=== PATIENT | male | born 1985 | race Caucasian/White ===

== ENCOUNTER 2023-06-28 10:45 | Emergency (ER) | payer MEDICAID ==
[~2023-06-28] VITALS: Ht 175.3 cm; Wt 95.3 kg
[2023-06-28 20:11] VITALS: BP 113/80; TEMP 98.4; O2SAT 96
== END 2023-06-28 20:11 | disposition home or self-care (01) ==
LOC: EDBD 11:10 → ER 11:10
DX: F10.129 Alcohol abuse with intoxication, unspecified (principal); Y90.9 Presence of alcohol in blood, level not specified

== ENCOUNTER 2023-12-09 14:37 | Inpatient (IN) | payer MEDICAID, OTHER ==
[~2023-12-09] VITALS: Ht 165.1 cm; Wt 95.3 kg
[2023-12-09] MEDS ORDERED: LORAZEPAM INJ 2 MG/ML VIAL ONE (14:50)
[2023-12-09] MEDS: LORAZEPAM INJ 2 MG/ML VIAL IVP ONE (14:54)
[2023-12-09 15:01] LABS: BASOPHILS # (AUTO) 0.1 K/uL (0.0-0.2); BASOPHILS % (AUTO) 1.1 % (0.0-2.0); EOSINOPHILS # (AUTO) 0.1 K/uL (0.0-0.7); HEMATOCRIT 37 % (39-51); HEMOGLOBIN 12.5 g/dL (13.5-17.5); LYMPHOCYTES # (AUTO) 1.4 K/uL (0.8-4.8); LYMPHOCYTES % (AUTO) 25.2 % (20.0-44.0); MEAN CORPUSCULAR HEMOGLOBIN 31 PG (26.0-33.0); MEAN CORPUSCULAR HGB CONC 34 g/dl (31.0-36.0); MEAN CORPUSCULAR VOLUME 91 fL (80-96); MONOCYTES # (AUTO) 0.2 K/uL (0.1-1.30); MONOCYTES % (AUTO) 3.3 % (2.0-12.0); NEUTROPHILS # (AUTO) 3.9 K/uL (1.8-8.9); NEUTROPHILS % (AUTO) 69.4 % (43.0-81.0); PLATELET COUNT (AUTO) 326 K/uL (150-450); RED BLOOD CELL COUNT(AUTO) 4.09 MIL/uL (4.5-6.0); RED CELL DISTRIBUTION WIDTH 14.5 % (11.5-15.0); WHITE BLOOD COUNT (AUTO) 5.6 K/uL (4.3-11.0)
[2023-12-09 15:13] LABS: CALCIUM, SERUM 8.3 mg/dL (8.5-10.1); CARBON DIOXIDE 22 mmol/L (21-32); CHLORIDE 104 mmol/L (98-107); CREATININE 1.3 mg/dL (0.6-1.3); GLUCOSE 158 mg/dL (74-106); SODIUM SERUM 137 mmol/L (136-145); UREA NITROGEN, BLOOD 12 mg/dL (7-18)
[2023-12-09 15:16] LABS: ALCOHOL, BLOOD < 3 mg/dL (0-10)
[2023-12-09 21:50] VITALS: BP 117/88; TEMP 98.6; O2SAT 100
[2023-12-10] VITALS: BP 99/64; TEMP 98.7; O2SAT 100
[2023-12-10] MEDS ORDERED: ACETAMINOPHEN 325 MG TABLET PO PRN
[2023-12-10] MEDS ORDERED: MAG HYDROX/AL HYDROX/SIMETH 30 ML UDC PO PRN
[2023-12-10] MEDS ORDERED: ONDANSETRON HCL/PF 4 MG/2 ML VIAL IVP PRN
[2023-12-10] MEDS ORDERED: LORAZEPAM INJ 2 MG/ML VIAL IV PRN
[2023-12-10] MEDS: CHLORDIAZEPOXIDE HCL 25 MG CAPSULE PO SCH (00:30)
[2023-12-10] MEDS: IV NS 0.9% 1,000 ML IV PRN (00:31)
[2023-12-10 06:39] LABS: BASOPHILS # (AUTO) 0.1 K/uL (0.0-0.2); BASOPHILS % (AUTO) 1.1 % (0.0-2.0); EOSINOPHILS # (AUTO) 0.1 K/uL (0.0-0.7); EOSINOPHILS % (AUTO) 2.6 % (0.0-6.0); HEMATOCRIT 36 % (39-51); HEMOGLOBIN 12.1 g/dL (13.5-17.5); LYMPHOCYTES # (AUTO) 1.9 K/uL (0.8-4.8); LYMPHOCYTES % (AUTO) 37.6 % (20.0-44.0); MEAN CORPUSCULAR HEMOGLOBIN 31 PG (26.0-33.0); MEAN CORPUSCULAR HGB CONC 34 g/dl (31.0-36.0); MEAN CORPUSCULAR VOLUME 91 fL (80-96); MONOCYTES # (AUTO) 0.3 K/uL (0.1-1.30); MONOCYTES % (AUTO) 6.1 % (2.0-12.0); NEUTROPHILS # (AUTO) 2.7 K/uL (1.8-8.9); NEUTROPHILS % (AUTO) 52.6 % (43.0-81.0); PLATELET COUNT (AUTO) 298 K/uL (150-450); RED BLOOD CELL COUNT(AUTO) 3.91 MIL/uL (4.5-6.0); RED CELL DISTRIBUTION WIDTH 14.9 % (11.5-15.0); WHITE BLOOD COUNT (AUTO) 5.2 K/uL (4.3-11.0)
[2023-12-10 06:46] LABS: CREATININE 1.2 mg/dL (0.6-1.3); MAGNESIUM 2.2 mg/dL (1.8-2.4); PHOSPHORUS 3.4 mg/dL (2.5-4.9); POTASSIUM 3.3 mmol/L (3.5-5.1)
[2023-12-10 08:00] VITALS: BP 112/86; TEMP 97.6; O2SAT 100
[2023-12-10 08:20] VITALS: O2SAT 100
[2023-12-10] MEDS: THIAMINE HCL 100 MG TABLET PO SCH (08:33)
[2023-12-10] MEDS: ENOXAPARIN SODIUM 40 MG/0.4 ML DISP.SYRIN SQ SCH (08:34)
[2023-12-10] MEDS: FOLIC ACID 1 MG TABLET PO SCH (08:34)
[2023-12-10] MEDS ORDERED: LEVO100T PO (09:37)
[2023-12-10] MEDS ORDERED: LEVE1000 PO (09:37)
[2023-12-10] MEDS: POTASSIUM CHLORIDE 20 MEQ TAB.PRT.SR PO ONE (10:55)
[2023-12-10] MEDS: LEVETIRACETAM (250 MG) 250 MG TABLET PO SCH ×2 (10:55→21:13)
[2023-12-10] MEDS: LEVOTHYROXINE SODIUM 100 MCG TABLET PO SCH (10:55)
[2023-12-10] MEDS ORDERED: LACOSAMIDE 50 MG TABLET PO SCH (12:00)
[2023-12-10 16:00] VITALS: BP 92/61; TEMP 97.5; O2SAT 100
[2023-12-10 20:00] VITALS: BP 98/67; TEMP 97.9; O2SAT 100
[2023-12-11 04:00] VITALS: BP 97/64; TEMP 97.8; O2SAT 100
[2023-12-11 06:30] LABS: CALCIUM, SERUM 8.4 mg/dL (8.5-10.1); POTASSIUM 3.5 mmol/L (3.5-5.1)
[2023-12-11 06:53] LABS: BASOPHILS % (AUTO) 0.8 % (0.0-2.0); EOSINOPHILS # (AUTO) 0.1 K/uL (0.0-0.7); EOSINOPHILS % (AUTO) 2.9 % (0.0-6.0); HEMATOCRIT 35 % (39-51); HEMOGLOBIN 11.6 g/dL (13.5-17.5); LYMPHOCYTES # (AUTO) 1.9 K/uL (0.8-4.8); LYMPHOCYTES % (AUTO) 43.2 % (20.0-44.0); MEAN CORPUSCULAR HEMOGLOBIN 31 PG (26.0-33.0); MEAN CORPUSCULAR HGB CONC 34 g/dl (31.0-36.0); MEAN CORPUSCULAR VOLUME 92 fL (80-96); MONOCYTES # (AUTO) 0.2 K/uL (0.1-1.30); MONOCYTES % (AUTO) 5.3 % (2.0-12.0); NEUTROPHILS # (AUTO) 2.1 K/uL (1.8-8.9); NEUTROPHILS % (AUTO) 47.8 % (43.0-81.0); PLATELET COUNT (AUTO) 259 K/uL (150-450); RED BLOOD CELL COUNT(AUTO) 3.77 MIL/uL (4.5-6.0); WHITE BLOOD COUNT (AUTO) 4.4 K/uL (4.3-11.0)
[2023-12-11] MEDS ORDERED: LEVE250T2 PO (08:45)
== END 2023-12-11 11:15 | disposition home or self-care (01) | DRG 53 ==
LOC: ER 14:56 → MEDSG1 20:59
PROVIDERS: ADMIT Internal Medicine; ATTEND Internal Medicine
DX: G40.909 Epilepsy, unspecified, not intractable, without status epilepticus (principal); D64.9 Anemia, unspecified; F10.10 Alcohol abuse, uncomplicated; Y90.0 Blood alcohol level of less than 20 mg/100 ml; Z79.899 Other long term (current) drug therapy; E87.6 Hypokalemia; Z87.820 Personal history of traumatic brain injury; Z98.890 Other specified postprocedural states
CPT/HCPCS: 36415; 70450-TC; 80048-TC; 80061-TC; 80177; 83735-TC; 84100-TC; 85025-TC; 94799-TC; A4223; G0378; G0480; J1650; J2060; J7030

== ENCOUNTER 2023-12-15 15:07 | Emergency (ER) | payer OTHER ==
[~2023-12-15] VITALS: Ht 170.2 cm; Wt 97.5 kg
[~2023-12-15 15:07] MED LIST: LEVE250T2 PO; LEVO100T PO
[2023-12-15] MEDS: IV NS 0.9% 1,000 ML BAG IV ONE (16:40)
[2023-12-15] MEDS: LEVETIRACETAM (500MG) 1,000 MG in IV NS 0.9% 90 ML IV SCH (17:15)
[2023-12-15 19:16] VITALS: BP 122/82; TEMP 98.2; O2SAT 97
== END 2023-12-15 19:17 | disposition home or self-care (01) ==
LOC: ER 15:37
DX: G40.909 Epilepsy, unspecified, not intractable, without status epilepticus (principal); F10.10 Alcohol abuse, uncomplicated; Z60.2 Problems related to living alone
CPT/HCPCS: 99284; 96365; 96361; J7030; J1953

== ENCOUNTER 2024-01-01 10:08 | Emergency (ER) | payer OTHER ==
[~2024-01-01] VITALS: Ht 170.2 cm; Wt 86.2 kg
[2024-01-01] MEDS ORDERED: LEVETIRACETAM (250 MG) 250 MG TABLET PO ONE (10:24)
[2024-01-01] MEDS: LEVETIRACETAM (250 MG) 250 MG TABLET PO ONE (10:24)
[2024-01-01 11:31] VITALS: BP 120/80; TEMP 98.5; O2SAT 100
== END 2024-01-01 11:31 | disposition home or self-care (01) ==
LOC: ER 10:15
DX: G40.909 Epilepsy, unspecified, not intractable, without status epilepticus (principal); Z79.899 Other long term (current) drug therapy; Z60.2 Problems related to living alone
CPT/HCPCS: 82962-TC

== ENCOUNTER 2024-01-11 08:39 | Emergency (ER) | payer OTHER ==
[~2024-01-11] VITALS: Ht 170.2 cm; Wt 69.9 kg
[2024-01-11] MEDS: LEVETIRACETAM (500MG) 500 MG in IV NS 0.9% 100 ML IV SCH (09:21)
[2024-01-11 09:24] LABS: BASOPHILS # (AUTO) 0.1 K/uL (0.0-0.2); BASOPHILS % (AUTO) 1.4 % (0.0-2.0); EOSINOPHILS # (AUTO) 0.1 K/uL (0.0-0.7); EOSINOPHILS % (AUTO) 1.9 % (0.0-6.0); HEMATOCRIT 39 % (39-51); HEMOGLOBIN 13.1 g/dL (13.5-17.5); LYMPHOCYTES # (AUTO) 0.9 K/uL (0.8-4.8); LYMPHOCYTES % (AUTO) 14.6 % (20.0-44.0); MEAN CORPUSCULAR HEMOGLOBIN 31 PG (26.0-33.0); MEAN CORPUSCULAR HGB CONC 34 g/dl (31.0-36.0); MEAN CORPUSCULAR VOLUME 93 fL (80-96); MONOCYTES # (AUTO) 0.2 K/uL (0.1-1.30); NEUTROPHILS # (AUTO) 4.6 K/uL (1.8-8.9); NEUTROPHILS % (AUTO) 78.1 % (43.0-81.0); PLATELET COUNT (AUTO) 293 K/uL (150-450); RED BLOOD CELL COUNT(AUTO) 4.19 MIL/uL (4.5-6.0); RED CELL DISTRIBUTION WIDTH 15.2 % (11.5-15.0); WHITE BLOOD COUNT (AUTO) 5.9 K/uL (4.3-11.0)
[2024-01-11 09:37] LABS: CALCIUM, SERUM 9.3 mg/dL (8.5-10.1); CARBON DIOXIDE 24 mmol/L (21-32); CHLORIDE 100 mmol/L (98-107); CREATININE 1.4 mg/dL (0.6-1.3); GLUCOSE 101 mg/dL (74-106); POTASSIUM 3.7 mmol/L (3.5-5.1); SODIUM SERUM 137 mmol/L (136-145); UREA NITROGEN, BLOOD 9 mg/dL (7-18)
[2024-01-11 09:42] LABS: INR 1.13 (0.91-1.10); PARTIAL THROMBOPLASTIN TIME 25.4 SEC (24.3-34.3); PROTHROMBIN TIME 11.9 SECS (9.2-11.1)
[2024-01-11 09:50] LABS: ALANINE AMINOTRANSFERASE 28 U/L (12-78); ALBUMIN 3.5 g/dL (3.4-5.0); ALCOHOL, BLOOD < 3 mg/dL (0-10); ALKALINE PHOSPHATASE 85 U/L (46-116); ASPARTATE AMINOTRANSFERASE 37 U/L (15-37); BILIRUBIN,DIRECT 0.2 mg/dL (0.0-0.2); BILIRUBIN,TOTAL 0.6 mg/dL (0.2-1.0); TOTAL PROTEIN, SERUM 7.6 g/dL (6.4-8.2)
[2024-01-11] MEDS: IV NS 0.9% 1,000 ML BAG IV ONE (10:26)
[2024-01-11] MEDS: LEVETIRACETAM (500MG) 500 MG in IV NS 0.9% 100 ML IV STA (10:37)
[2024-01-11 12:36] LABS: AMPHETAMINE, URINE POSITIVE (NEGATIVE); BARBITURATE, URINE NEGATIVE (NEGATIVE); BENZODIAZEPINE, URINE NEGATIVE (NEGATIVE); COCCAINE, URINE NEGATIVE (NEGATIVE); OPIATE, URINE NEGATIVE (NEGATIVE); PHENCYCLIDINE SCREEN,URINE NEGATIVE (NEGATIVE)
[2024-01-11 12:37] LABS: CANNABINOID, URINE POSITIVE (NEGATIVE)
[2024-01-11] MEDS ORDERED: Magnesium 1GM/D5W 100ML PREMIX 100 ML IV ONE (14:09)
[2024-01-11] MEDS: Magnesium 1GM/D5W 100ML PREMIX 100 ML IV ONE (14:15)
[2024-01-11 16:43] VITALS: BP 111/76; TEMP 98.2; O2SAT 100
== END 2024-01-11 16:44 | disposition home or self-care (01) ==
LOC: ER 08:42
DX: R56.9 Unspecified convulsions (principal); Z60.2 Problems related to living alone
CPT/HCPCS: 99285; 96365; 96366; 96367; 93005; 70450; 85025; 80048; 80076; 36415; 85730; 82962; 80320; 80307; J7030 ×3; A4223 ×2; J3475; J1953 ×2; G0480

== ENCOUNTER 2024-01-25 14:20 | Emergency (ER) | payer OTHER ==
[~2024-01-25] VITALS: Ht 170.2 cm; Wt 81.6 kg
[2024-01-25 14:24] VITALS: TEMP 98.4
[2024-01-25] MEDS: IV NS 0.9% 1,000 ML BAG IV ONE (15:01)
[2024-01-25] MEDS: LEVETIRACETAM (500MG) 1,500 MG in IV NS 0.9% 85 ML IV SCH (15:13)
[2024-01-25 15:18] LABS: CALCIUM, SERUM 9.2 mg/dL (8.5-10.1); CREATININE 1.3 mg/dL (0.6-1.3); POTASSIUM 3.3 mmol/L (3.5-5.1)
[2024-01-25 15:24] LABS: ALBUMIN 3.7 g/dL (3.4-5.0); BASOPHILS % (AUTO) 0.8 % (0.0-2.0); BILIRUBIN,DIRECT 0.1 mg/dL (0.0-0.2); BILIRUBIN,TOTAL 0.5 mg/dL (0.2-1.0); EOSINOPHILS % (AUTO) 0.9 % (0.0-6.0); HEMATOCRIT 40 % (39-51); HEMOGLOBIN 13.4 g/dL (13.5-17.5); LYMPHOCYTES # (AUTO) 1.2 K/uL (0.8-4.8); LYMPHOCYTES % (AUTO) 23.7 % (20.0-44.0); MEAN CORPUSCULAR HEMOGLOBIN 31 PG (26.0-33.0); MEAN CORPUSCULAR HGB CONC 34 g/dl (31.0-36.0); MEAN CORPUSCULAR VOLUME 91 fL (80-96); MONOCYTES # (AUTO) 0.3 K/uL (0.1-1.30); MONOCYTES % (AUTO) 5.4 % (2.0-12.0); NEUTROPHILS # (AUTO) 3.6 K/uL (1.8-8.9); NEUTROPHILS % (AUTO) 69.2 % (43.0-81.0); PLATELET COUNT (AUTO) 255 K/uL (150-450); RED BLOOD CELL COUNT(AUTO) 4.36 MIL/uL (4.5-6.0); RED CELL DISTRIBUTION WIDTH 15.1 % (11.5-15.0); TOTAL PROTEIN, SERUM 7.5 g/dL (6.4-8.2); WHITE BLOOD COUNT (AUTO) 5.2 K/uL (4.3-11.0)
[2024-01-25] MEDS ORDERED: LEVE250T2 PO (16:09)
[2024-01-25 17:07] VITALS: BP 126/78; O2SAT 97
== END 2024-01-25 17:07 | disposition home or self-care (01) ==
LOC: ER 14:24
DX: G40.909 Epilepsy, unspecified, not intractable, without status epilepticus (principal); R42 Dizziness and giddiness; Z60.2 Problems related to living alone
CPT/HCPCS: 99284; 96365; 85025; 80048; 80076; 36415; 82962; J7030; J1953

== ENCOUNTER 2024-04-19 19:23 | Emergency (ER) | payer OTHER ==
[~2024-04-19] VITALS: Ht 170.2 cm; Wt 77.1 kg
[2024-04-19 19:27] VITALS: BP 123/95; TEMP 98.4; O2SAT 98
[2024-04-19 20:08] LABS: BASOPHILS # (AUTO) 0.1 K/uL (0.0-0.2); EOSINOPHILS # (AUTO) 0.1 K/uL (0.0-0.7); EOSINOPHILS % (AUTO) 1.8 % (0.0-6.0); HEMATOCRIT 38 % (39-51); HEMOGLOBIN 12.8 g/dL (13.5-17.5); LYMPHOCYTES # (AUTO) 1.7 K/uL (0.8-4.8); LYMPHOCYTES % (AUTO) 29.3 % (20.0-44.0); MEAN CORPUSCULAR HEMOGLOBIN 32 PG (26.0-33.0); MEAN CORPUSCULAR HGB CONC 34 g/dl (31.0-36.0); MEAN CORPUSCULAR VOLUME 94 fL (80-96); MONOCYTES # (AUTO) 0.3 K/uL (0.1-1.30); MONOCYTES % (AUTO) 5.6 % (2.0-12.0); NEUTROPHILS # (AUTO) 3.7 K/uL (1.8-8.9); NEUTROPHILS % (AUTO) 62.3 % (43.0-81.0); PLATELET COUNT (AUTO) 304 K/uL (150-450); RED BLOOD CELL COUNT(AUTO) 4.02 MIL/uL (4.5-6.0); RED CELL DISTRIBUTION WIDTH 15.1 % (11.5-15.0); WHITE BLOOD COUNT (AUTO) 5.9 K/uL (4.3-11.0)
[2024-04-19 20:20] LABS: INR 1.07 (0.91-1.10); PARTIAL THROMBOPLASTIN TIME 28.8 SEC (24.3-34.3); PROTHROMBIN TIME 11.3 SECS (9.2-11.1)
[2024-04-19] MEDS ORDERED: LEVETIRACETAM (250 MG) 250 MG TABLET PO ONE ×2 (20:30→20:48)
[2024-04-19] MEDS: LEVETIRACETAM (250 MG) 250 MG TABLET PO ONE (20:33)
[2024-04-19 20:42] LABS: CREATININE 1.2 mg/dL (0.6-1.3); POTASSIUM 3.6 mmol/L (3.5-5.1)
[2024-04-19 20:48] LABS: ALBUMIN 3.9 g/dL (3.4-5.0); BILIRUBIN,DIRECT 0.1 mg/dL (0.0-0.2); BILIRUBIN,TOTAL 0.5 mg/dL (0.2-1.0); TOTAL PROTEIN, SERUM 7.6 g/dL (6.4-8.2)
== END 2024-04-19 21:28 | disposition home or self-care (01) ==
LOC: ER 19:27
DX: G40.909 Epilepsy, unspecified, not intractable, without status epilepticus (principal); R06.02 Shortness of breath; Z79.890 Hormone replacement therapy
CPT/HCPCS: 36415; 70450-TC; 71045-TC; 80048-TC; 80076-TC; 82962-TC; 85025-TC; 85730-TC; G0480

== ENCOUNTER 2024-05-01 11:40 | Emergency (ER) | payer OTHER ==
[~2024-05-01] VITALS: Ht 170.2 cm; Wt 77.6 kg
[2024-05-01 13:07] VITALS: BP 118/80; TEMP 98.8; O2SAT 97
== END 2024-05-01 13:07 | disposition home or self-care (01) ==
LOC: ER 11:44
DX: G40.409 Other generalized epilepsy and epileptic syndromes, not intractable, without status epilepticus (principal); F19.10 Other psychoactive substance abuse, uncomplicated; Z60.2 Problems related to living alone

== ENCOUNTER 2024-10-24 11:44 | Inpatient (IN) | payer OTHER ==
[~2024-10-24] VITALS: Ht 170.2 cm; Wt 80.3 kg
[2024-10-24] MEDS ORDERED: LORAZEPAM INJ 2 MG/ML VIAL ONE (12:08)
[2024-10-24] MEDS: IV NS 0.9% 1,000 ML BAG IV ONE (12:15)
[2024-10-24] MEDS: LORAZEPAM INJ 2 MG/ML VIAL IV ONE (12:18)
[2024-10-24] MEDS ORDERED: FOLIC ACID 1 MG TABLET ONE (12:20)
[2024-10-24 12:21] LABS: BASOPHILS # (AUTO) 0.1 K/uL (0.0-0.2); BASOPHILS % (AUTO) 0.7 % (0.0-2.0); EOSINOPHILS % (AUTO) 0.2 % (0.0-6.0); HEMATOCRIT 39 % (39-51); HEMOGLOBIN 13.2 g/dL (13.5-17.5); LYMPHOCYTES # (AUTO) 1.5 K/uL (0.8-4.8); LYMPHOCYTES % (AUTO) 8.7 % (20.0-44.0); MEAN CORPUSCULAR HEMOGLOBIN 31 PG (26.0-33.0); MEAN CORPUSCULAR HGB CONC 34 g/dl (31.0-36.0); MEAN CORPUSCULAR VOLUME 91 fL (80-96); MONOCYTES # (AUTO) 0.9 K/uL (0.1-1.30); NEUTROPHILS # (AUTO) 14.8 K/uL (1.8-8.9); NEUTROPHILS % (AUTO) 85.4 % (43.0-81.0); PLATELET COUNT (AUTO) 315 K/uL (150-450); RED BLOOD CELL COUNT(AUTO) 4.24 MIL/uL (4.5-6.0); RED CELL DISTRIBUTION WIDTH 14.9 % (11.5-15.0); WHITE BLOOD COUNT (AUTO) 17.3 K/uL (4.3-11.0)
[2024-10-24] MEDS: FOLIC ACID 1 MG TABLET PO ONE (12:22)
[2024-10-24] MEDS: LEVETIRACETAM (500MG) 1,000 MG in IV NS 0.9% 90 ML IV STA (12:25)
[2024-10-24 12:37] LABS: CARBON DIOXIDE 28 mmol/L (21-32); CHLORIDE 99 mmol/L (98-107); CREATININE 0.9 mg/dL (0.6-1.3); GLUCOSE 102 mg/dL (74-106); POTASSIUM 3.4 mmol/L (3.5-5.1); SODIUM SERUM 134 mmol/L (136-145); UREA NITROGEN, BLOOD 12 mg/dL (7-18)
[2024-10-24 12:39] LABS: ALCOHOL, BLOOD < 10 mg/dL (0-10)
[2024-10-24] MEDS: Thiamine 100 MG in IV D5W 50 ML IV SCH (13:00)
[2024-10-24] MEDS ORDERED: LORAZEPAM INJ 2 MG/ML VIAL IV PRN (14:00)
[2024-10-24] MEDS ORDERED: MAGNESIUM HYDROXIDE 30 ML UDC PO PRN (14:00)
[2024-10-24] MEDS ORDERED: ONDANSETRON HCL/PF 4 MG/2 ML VIAL IVP PRN (14:00)
[2024-10-24] MEDS ORDERED: MAG HYDROX/AL HYDROX/SIMETH 30 ML UDC PO PRN (14:00)
[2024-10-24] MEDS ORDERED: Z GUARD REMEDY 4 OZ OINT TP PRN (14:00)
[2024-10-24 15:50] LABS: AMPHETAMINE, URINE NEGATIVE (NEGATIVE); BARBITURATE, URINE NEGATIVE (NEGATIVE); BENZODIAZEPINE, URINE NEGATIVE (NEGATIVE); COCCAINE, URINE NEGATIVE (NEGATIVE); OPIATE, URINE NEGATIVE (NEGATIVE); PHENCYCLIDINE SCREEN,URINE NEGATIVE (NEGATIVE)
[2024-10-24 15:52] LABS: CANNABINOID, URINE POSITIVE (NEGATIVE)
[2024-10-24] MEDS ORDERED: PANTOPRAZOLE 40 MG VIAL ONE (19:22)
[2024-10-24] MEDS ORDERED: POTASSIUM CL. PREMIX PERIPHER. 50 ML ONE (19:23)
[2024-10-24] MEDS: POTASSIUM CL. PREMIX PERIPHER. 50 ML IV SCH (19:36)
[2024-10-24] MEDS: PANTOPRAZOLE 40 MG VIAL IV SCH (19:36)
[2024-10-24 20:00] VITALS: BP 122/76; TEMP 98.4; O2SAT 97
[2024-10-24] MEDS: LEVETIRACETAM (500MG) 1,000 MG in IV NS 0.9% 90 ML IV SCH (21:47)
[2024-10-24] MEDS: IV D5/ 0.9% NACL 1,000 ML IV PRN (23:13)
[2024-10-25] VITALS: BP 121/93; TEMP 98.4; O2SAT 97
[2024-10-25 04:00] VITALS: BP 112/83; TEMP 98.2; O2SAT 100
[2024-10-25 07:30] LABS: BASOPHILS # (AUTO) 0.1 K/uL (0.0-0.2); BASOPHILS % (AUTO) 0.9 % (0.0-2.0); EOSINOPHILS # (AUTO) 0.1 K/uL (0.0-0.7); EOSINOPHILS % (AUTO) 0.8 % (0.0-6.0); HEMATOCRIT 34 % (39-51); LYMPHOCYTES % (AUTO) 22.7 % (20.0-44.0); MEAN CORPUSCULAR HEMOGLOBIN 32 PG (26.0-33.0); MEAN CORPUSCULAR HGB CONC 35 g/dl (31.0-36.0); MEAN CORPUSCULAR VOLUME 92 fL (80-96); MONOCYTES # (AUTO) 0.4 K/uL (0.1-1.30); MONOCYTES % (AUTO) 4.9 % (2.0-12.0); NEUTROPHILS # (AUTO) 6.2 K/uL (1.8-8.9); NEUTROPHILS % (AUTO) 70.7 % (43.0-81.0); PLATELET COUNT (AUTO) 275 K/uL (150-450); RED CELL DISTRIBUTION WIDTH 14.8 % (11.5-15.0); WHITE BLOOD COUNT (AUTO) 8.7 K/uL (4.3-11.0)
[2024-10-25 08:00] VITALS: BP 134/95; TEMP 99.1; O2SAT 100
[2024-10-25 08:02] LABS: CALCIUM, SERUM 8.4 mg/dL (8.5-10.1); CREATININE 0.8 mg/dL (0.6-1.3); MAGNESIUM 2.3 mg/dL (1.8-2.4); POTASSIUM 3.7 mmol/L (3.5-5.1)
[2024-10-25] MEDS: THIAMINE HCL 100 MG TABLET PO SCH (09:01)
[2024-10-25] MEDS: ACETAMINOPHEN 325 MG TABLET PO PRN (11:50)
[2024-10-25 12:00] VITALS: BP 142/97; TEMP 98.6; O2SAT 100
[2024-10-25] MEDS: NEUTRA PHOS 1 POWD.PACKET PO ONE (13:45)
[2024-10-25 16:00] VITALS: BP 154/100; TEMP 98.4; O2SAT 100
[2024-10-25 20:00] VITALS: BP 146/101; TEMP 98.2; O2SAT 100
[2024-10-26] VITALS: BP 132/93; TEMP 98.6; O2SAT 99
[2024-10-26 04:00] VITALS: BP 128/95; TEMP 98.2; O2SAT 99
[2024-10-26 08:00] VITALS: BP 131/91; TEMP 97.9; O2SAT 100
[2024-10-26] MEDS: PANTOPRAZOLE 40 MG TABLET.DR PO SCH (08:31)
[2024-10-26] MEDS ORDERED: LEVETIRACETAM (250 MG) 250 MG TABLET PO SCH (21:00)
== END 2024-10-26 09:24 | disposition left against medical advice (07) | DRG 53 ==
LOC: ER 11:46 → TELE1 18:25
PROVIDERS: ADMIT Nurse Practitioner Acute Care; ATTEND Nurse Practitioner Acute Care
DX: G40.909 Epilepsy, unspecified, not intractable, without status epilepticus (principal); E87.1 Hypo-osmolality and hyponatremia; D72.829 Elevated white blood cell count, unspecified; F10.239 Alcohol dependence with withdrawal, unspecified; E87.6 Hypokalemia; Z59.00 Homelessness unspecified; F10.20 Alcohol dependence, uncomplicated
CPT/HCPCS: 36415; 70450-TC; 80048-TC; 83735-TC; 84100-TC; 85025-TC; 87081-TC; 98960; A4223; G0378; G0480; J1953; J2060; J2470; J3411; J3480; J7030; J7042; J7050; J7060